=== PATIENT | male | born 1960 | race Caucasian/White ===

== ENCOUNTER 2023-08-21 10:01 | Observation (INO) ==
[2023-08-21 11:15] LABS: BILIRUBIN,URINE NEGATIVE (NEGATIVE); BLOOD/HEMOGLOBIN,URINE 2+ (NEGATIVE); GLUCOSE, URINE NEGATIVE (NEGATIVE); KETONES,URINE NEGATIVE (NEGATIVE); LEUKOCYTE ESTERASE ,URINE NEGATIVE (NEGATIVE); NITRITES,URINE NEGATIVE (NEGATIVE); PROTEIN,URINE 1+ (NEGATIVE); UROBILINOGEN,URINE NORMAL (NORMAL)
[2023-08-21 11:29] LABS: APPEARANCE,URINE CLEAR (CLEAR); COLOR,URINE YELLOW (YELLOW)
[2023-08-21 11:30] LABS: BACTERIA,URINE NEGATIVE /HPF (NEGATIVE); RBC,URINE 0-2 /HPF (0-3); SQUAMOUS EPITHELIAL CELL,UR RARE /HPF (NEGATIVE)
--- NOTE | 2023-08-21 12:12 | DR.EXTPAIN ---
HPI Time seen Time Seen by Provider: 08/21/23 12:10 PCP Primary Care Physician: Dr. Goldstein Complaint/Symptoms Chief Complaint:: Patient states he had a colonoscopy last week with Dr. Goldstein and has since had complications with urination and bowel movements. Also states he's having abdominal pain, pain in the back of his lungs, and coughing up white sputum. COVID-19 Coronavirus risk:travel/contact w/high risk person: No Has patient experienced Coronavirus symptoms: No Nurses notes reviewed Nurses Notes Review: Yes Source History Provided: Patient Mode of arrival Mode of Arrival: Ambulatory Timing Onset of Chief Complaint: 08/14/23 PMH PMH Past Medical History: Yes Past Medical History: Dyslipidemia and Hypertension Past Surgical History: No Family History History of Family Medical Conditions: No Social History Have you used tobacco products in the last 12 months: No Type of Tobacco Use: None Infectious screening Have you traveled outside the country in the last 6 months?: No Isolation: Standard PE Vital Signs Vitals: Vital Signs Temperature 97.2 F Pulse Rate 89 Respiratory Rate 18 Blood Pressure 144/82 O2 Sat by Pulse Oximetry 96 ROR Labs Reviewed 08/21/23 12:25 08/21/23 12:25 Laboratory: WBC 8.0 X10^3/uL (3.6-10.0) 08/21/23 12:25 RBC 5.11 X10^6/uL (4.7-6.0) 08/21/23 12:25 Hgb 15.4 g/dL (13.5-18.0) 08/21/23 12:25 Hct 44.4 % (42.0-54.0) 08/21/23 12:25 MCV 87.0 fL (80.0-100.0) 08/21/23 12:25 MCH 30.1 pg (27.0-34.0) 08/21/23 12:25 MCHC 34.6 g/dL (33.0-35.0) 08/21/23 12:25 RDW 13.9 % (11.6-16.5) 08/21/23 12:25 Plt Count 222 X10^3/uL (150.0-450.0) 08/21/23 12:25 MPV 7.4 fL (7.4-11.0) 08/21/23 12:25 Neut % (Auto) 71.2 % (42.0-75.0) 08/21/23 12: Lymph % (Auto) 16.2 % (21.0-51.0) L 08/21/23 12:25 [place] % (Auto) 9.6 % (0.0-13.0) 08/21/23 12:25 Eos % (Auto) 2.2 % (0.9-2.9) 08/21/23 12:25 Baso % (Auto) 0.8 % (0.2-1.0) 08/21/23 12:25 Neut # (Auto) 5.7 x10^3/uL (2.2-4.8) H 08/21/23 12:25 Lymph # (Auto) 1.3 X10^3/uL (1.3-2.9) 08/21/23 12:25 [place] # (Auto) 0.8 x10^3/uL (0.3-0.8) 08/21/23 12: Eos # (Auto) 0.2 x10^3/uL (0.0-0.2) 08/21/23 12:25 Baso # (Auto) 0.1 X10^3/uL (0.0-0.1) 08/21/23 12: Absolute Nucleated RBC 0.1 /100WBC 08/21/23 12:25 Sodium 132 mmol/L (136-145) L 08/21/23 12:25 Corrected Sodium 133 mmol/L (136-145) L 08/21/23 12:25 Potassium 4.1 mmol/L (3.5-5.1) 08/21/23 12:25 Chloride 95 mmol/L (98-107) L 08/21/23 12:25 Carbon Dioxide 32.8 mmol/L (21-32) H 08/21/23 12:25 BUN 9 mg/dL (7-18) 08/21/23 12:25 Creatinine 1.41 mg/dL (0.70-1.30) H 08/21/23 12:25 Est GFR (MDRD) Af Amer > 60 (>60) 08/21/23 12:25 Est GFR (MDRD) Non-Af 54 (>60) L 08/21/23 12:25 Glucose 122 mg/dL (65-99) H 08/21/23 12:25 Calcium 9.3 mg/dL (8.5-10.1) 08/21/23 12:25 Corrected Calcium TNP 08/21/23 12: Total Bilirubin 1.20 mg/dL (0.2-1.0) H 08/21/23 12:25 AST 26 Units/L (15-37) 08/21/23 12:25 ALT 50 Units/L (12-78) 08/21/23 12:25 Alkaline Phosphatase 57 Units/L (46-116) 08/21/23 12:25 Total Protein 7.7 g/dL (6.4-8.2) 08/21/23 12:25 Albumin 3.7 g/dL (3.4-5.0) 08/21/23 12: Globulin 4.0 g/dL (2.5-4.5) 08/21/23 12: Albumin/Globulin Ratio 0.9 Ratio (1.1-2.1) L 08/21/23 12:25 Amylase 44 Units/L (25-115) 08/21/23 12:25 Lipase 24 Units/L (16-77) 08/21/23 12:25 Specimen Type Clean catch urine 08/21/23 11:10 Urine Color Yellow (YELLOW) 08/21/23 11:10 Urine Appearance Clear (CLEAR) 08/21/23 11:10 Urine pH 5.0 (5.0 - 8.0) 08/21/23 11:10 Ur Specific [place] 1.020 (1.000-1.030) 08/21/23 11:10 Urine Protein 1+ (NEGATIVE) 08/21/23 11:10 Urine Glucose (UA) Negative (NEGATIVE) 08/21/23 11:10 Urine Ketones Negative (NEGATIVE) 08/21/23 11:10 Urine Blood 2+ (NEGATIVE) 08/21/23 11:10 Urine Nitrite Negative (NEGATIVE) 08/21/23 11:10 Urine Bilirubin Negative (NEGATIVE) 08/21/23 11:10 Urine Urobilinogen Normal (NORMAL) 08/21/23 11:10 Ur Leukocyte Esterase Negative (NEGATIVE) 08/21/23 11:10 Urine RBC 0-2 /HPF (0-3) 08/21/23 11:10 Urine WBC 0-2 /HPF (0-5) 08/21/23 11:10 Ur Squamous Epith Cells Rare /HPF (NEGATIVE) 08/21/23 11:10 Urine Bacteria Negative /HPF (NEGATIVE) 08/21/23 11:10 Ur Culture Indicated? No/not indicated 08/21/23 11:10 Opioid Opioid Risk Tool Total: 0 Total Score Risk Category: Low Risk Copyright: Tex WILLIS predicting aberrant behaviors Discharge Plan Discharge Plan Patient Disposition: HOME, SELF-CARE Condition: Stable Prescriptions: No Action ondansetron HCl 4 mg tablet 4 mg PO Q6H PRN (Reason: nausea and vomiting) Qty: 30 0RF lovastatin 40 mg tablet 40 mg PO QPM cetirizine 10 mg tablet 10 mg PO QDAY metformin 500 mg tablet 500 mg PO QDAY omeprazole 20 mg capsule,delayed release(DR/EC) 20 mg PO QDAY carvedilol 3.125 mg tablet 3.125 mg PO BID lisinopril-hydrochlorothiazide 20-12.5 mg tablet 1 tab PO QDAY aspirin 81 mg tablet,delayed release (DR/EC) 81 mg PO QDAY hydrocortisone acetate 30 mg suppository 30 mg RI TID Rectiv 0.4 % (w/w) ointment 1 inch RI BID Qty: 30 0RF Health Concerns: Post Hospitalization: new medications and changes needed to prevent readmission or further decline. Pt educated and given instructions on all concerns. Plan of Treatment: Continue with present treatment and follow up plan. Pt is to keep follow up appointment as instructed and take medications as ordered. Orders to Discharge Patient Discharge Orders: Transfer (Routine); Ordered 08/21/23 Ordered By: VALERIE PROCTOR Follow ups/Referrals Follow ups/Referrals: NFD,None [Primary Care Provider] - 3 days Instructions Stand Alone Forms: Post Hospital Follow Up Care
[2023-08-21 12:38] LABS: BASOPHILS # (AUTO) 0.1 X10^3/uL (0.0-0.1); BASOPHILS % (AUTO) 0.8 % (0.2-1.0); EOSINOPHILS # (AUTO) 0.2 x10^3/uL (0.0-0.2); EOSINOPHILS % (AUTO) 2.2 % (0.9-2.9); HEMATOCRIT 44.4 % (42.0-54.0); HEMOGLOBIN 15.4 g/dL (13.5-18.0); LYMPHOCYTES # (AUTO) 1.3 X10^3/uL (1.3-2.9); LYMPHOCYTES % (AUTO) 16.2 % (21.0-51.0); MEAN CORPUSCULAR HEMOGLOBIN 30.1 pg (27.0-34.0); MEAN CORPUSCULAR HGB CONC 34.6 g/dL (33.0-35.0); MEAN PLATELET VOLUME 7.4 fL (7.4-11.0); MONOCYTES # (AUTO) 0.8 x10^3/uL (0.3-0.8); MONOCYTES % (AUTO) 9.6 % (0.0-13.0); NEUTROPHILS # (AUTO) 5.7 x10^3/uL (2.2-4.8); NEUTROPHILS % (AUTO) 71.2 % (42.0-75.0); PLATELET COUNT 222 X10^3/uL (150.0-450.0); RED BLOOD COUNT 5.11 X10^6/uL (4.7-6.0); RED CELL DISTRIBUTION WIDTH 13.9 % (11.6-16.5)
[2023-08-21 12:47] LABS: ALANINE AMINOTRANSFERASE 50 Units/L (12-78); ALBUMIN 3.7 g/dL (3.4-5.0); ALKALINE PHOSPHATASE 57 Units/L (46-116); AMYLASE 44 Units/L (25-115); ASPARTATE AMINO TRANSFERASE 26 Units/L (15-37); BLOOD UREA NITROGEN 9 mg/dL (7-18); CALCIUM 9.3 mg/dL (8.5-10.1); CARBON DIOXIDE 32.8 mmol/L (21-32); CHLORIDE 95 mmol/L (98-107); COR NA(FOR HYPERGLY) 133 mmol/L (136-145); CREATININE 1.41 mg/dL (0.70-1.30); GLUCOSE 122 mg/dL (65-99); LIPASE 24 Units/L (16-77); POTASSIUM 4.1 mmol/L (3.5-5.1); SODIUM 132 mmol/L (136-145); TOTAL PROTEIN 7.7 g/dL (6.4-8.2); eGFR NON BLACK RACES 54 (>60)
--- NOTE | 2023-08-21 13:08 | CT ---
EXAM:ABDOMEN/PELVIS W/O CONHISTORY:PAIN;COMPARISON:Yesterday .br.br.br obtained from the lung bases to the pubic symphysis without the administration of IV contrast. Dose reduction techniques including Automated Exposure Control (AEC) and adjustment of mA and kV were utilized.FINDINGS:The visualized portions of the lung bases are unremarkable . The liver, spleen, pancreas, kidneys, and adrenal glands are unremarkable in their noncontrast CT appearance. The gallbladder is unremarkable in its CT appearance . No significant mesenteric lymphadenopathy or stranding can be observed. No free fluid or free air is seen within the abdomen. No bowel wall thickening or bowel dilatation is present. The colon is unremarkable. Specifically, there is no diverticulosis noted within the sigmoid colon. The appendix is normal. The urinary bladder is grossly unremarkable. The bony structures are grossly intact.IMPRESSION:Unremarkable CT of the abdomen and pelvis.THIS IS AN ELECTRONICALLY VERIFIED FINAL REPORT08/21/2023 1:05 PM - Electronically signed by Richard Morley MD
[2023-08-21] MEDS ORDERED: ZOFRAN INJ 4 MG VIAL IVP PRN (15:14)
[2023-08-21] MEDS ORDERED: MORPHINE SULFATE INJ 2 MG INJ IVP PRN (15:14)
[2023-08-21] MEDS: NS 1,000 ML IV 1,000 ML IV SCH (15:52)
[2023-08-21 15:58] VITALS: BMI 30.2
--- NOTE | 2023-08-21 18:49 | EKG ---
Test Reason : increased heart rate, dizzyness Blood Pressure : */* mmHG Vent. Rate : 99 BPM Atrial Rate : 99 BPM P-R Int : 144 ms QRS Dur : 94 ms QT Int : 350 ms P-R-T Axes : 22 29 30 degrees QTc Int : 449 ms Normal sinus rhythm Nonspecific ST abnormality Abnormal ECG No previous ECGs available Confirmed by Hernan Cervantes ([id number]) on 08/22/2023 3:34:21 PM Referred By: Confirmed By: Hernan Cervantes
[2023-08-21] MEDS ORDERED: PATIENT'S HOME MEDICATION (Lovastatin 40 mg tablet) PO SCH (21:00)
[2023-08-21] MEDS: COREG TAB 3.125 MG PO SCH (21:34)
[2023-08-21] MEDS: ZOCOR TAB 20 MG PO SCH (21:34)
[2023-08-21] MEDS: NITROGLYCERIN 0.4% PR SCH (21:49)
[2023-08-21] MEDS: [UNRECOGNIZED DRUG - OTHER] PR SCH (21:49)
[2023-08-21] MEDS: ANUCORT-HC SUPP PR SCH (21:50)
[2023-08-22] MEDS: NS 1,000 ML IV 1,000 ML IV SCH ×3 (03:00→22:23)
[2023-08-22] MEDS: ANUCORT-HC SUPP PR SCH ×3 (05:49→22:23)
[2023-08-22 06:32] LABS: BASOPHILS % (AUTO) 0.6 % (0.2-1.0); EOSINOPHILS # (AUTO) 0.2 x10^3/uL (0.0-0.2); EOSINOPHILS % (AUTO) 2.9 % (0.9-2.9); HEMATOCRIT 43.7 % (42.0-54.0); HEMOGLOBIN 15.2 g/dL (13.5-18.0); LYMPHOCYTES # (AUTO) 1.9 X10^3/uL (1.3-2.9); LYMPHOCYTES % (AUTO) 22.8 % (21.0-51.0); MEAN CORPUSCULAR HEMOGLOBIN 30.2 pg (27.0-34.0); MEAN CORPUSCULAR HGB CONC 34.7 g/dL (33.0-35.0); MEAN CORPUSCULAR VOLUME 87.1 fL (80.0-100.0); MEAN PLATELET VOLUME 8.1 fL (7.4-11.0); MONOCYTES # (AUTO) 0.9 x10^3/uL (0.3-0.8); MONOCYTES % (AUTO) 10.4 % (0.0-13.0); NEUTROPHILS # (AUTO) 5.1 x10^3/uL (2.2-4.8); NEUTROPHILS % (AUTO) 63.3 % (42.0-75.0); PLATELET COUNT 238 X10^3/uL (150.0-450.0); RED BLOOD COUNT 5.01 X10^6/uL (4.7-6.0); WHITE BLOOD COUNT 8.1 X10^3/uL (3.6-10.0)
[2023-08-22 06:37] LABS: ALANINE AMINOTRANSFERASE 47 Units/L (12-78); ALBUMIN 3.5 g/dL (3.4-5.0); ALKALINE PHOSPHATASE 54 Units/L (46-116); ASPARTATE AMINO TRANSFERASE 23 Units/L (15-37); BLOOD UREA NITROGEN 9 mg/dL (7-18); CARBON DIOXIDE 30.7 mmol/L (21-32); CHLORIDE 98 mmol/L (98-107); CREATININE 1.23 mg/dL (0.70-1.30); GLUCOSE 96 mg/dL (65-99); POTASSIUM 3.7 mmol/L (3.5-5.1); SODIUM 134 mmol/L (136-145); TOTAL PROTEIN 7.4 g/dL (6.4-8.2); eGFR NON BLACK RACES > 60 (>60)
[2023-08-22] MEDS ORDERED: GLUCOPHAGE ONE (08:06)
[2023-08-22] MEDS ORDERED: ZESTRIL TAB 20 MG ONE (08:06)
[2023-08-22] MEDS: ZyrTEC TAB 10 MG PO SCH (08:55)
[2023-08-22] MEDS: GLUCOPHAGE PO SCH (08:55)
[2023-08-22] MEDS: HYDROCHLOROTHIAZIDE 12.5 MG CAP PO SCH (08:55)
[2023-08-22] MEDS: PriLOSEC PO SCH (08:56)
[2023-08-22] MEDS: ASPIRIN EC 81 MG PO SCH (08:56)
[2023-08-22] MEDS: COREG TAB 3.125 MG PO SCH ×2 (08:56→20:20)
[2023-08-22] MEDS: ZESTRIL TAB 20 MG PO SCH (08:57)
[2023-08-22] MEDS: [UNRECOGNIZED DRUG - OTHER] PR SCH ×3 (08:57→22:23)
[2023-08-22] MEDS: NITROGLYCERIN 0.4% PR SCH ×3 (08:57→22:23)
[2023-08-22] MEDS ORDERED: K-DUR TAB 20 MEQ PO SCH (09:00)
[2023-08-22] MEDS ORDERED: CONSULT PHARMACY - POTASSIUM & MAGNESIUM XX SCH (09:00)
[2023-08-22] MEDS ORDERED: ZyrTEC TAB 10 MG PO SCH (09:00)
--- NOTE | 2023-08-22 10:32 | DR.PROGNOT ---
HOSPITAL PROGRESS NOTE Progress Note for Day of: Progress Note Date: 08/22/23 Chief Complaint Chief Complaint: Still having mid abdominal pain with irregular bowel habits. No nausea or vomiting, no fever. Having rectal pain with each bowel movement with minimal bleeding. Complaining of swelling around his eyes with nasal congestion. Patient had recent upper respiratory tract infection. CBC and CHEM profile were normal. Afebrile. Past Medical Family Social History Allergies: Allergies iodine Allergy (Verified 08/14/23 08:02) Penicillins Allergy (Verified 08/03/23 09:37) shellfish derived Allergy (Verified 08/14/23 08:02) shrimp Allergy (Verified 08/14/23 09:27) Review Of Systems Changes in ROS: No changes Vital Signs Vital Signs: Vital Signs Temperature 98.6 F Pulse Rate [Left Radial] 89 Respiratory Rate 20 Blood Pressure [Left Arm] 121/73 O2 Sat by Pulse Oximetry 94 Physical Exam Oriented: Normal Eyes: Other (Moderate periorbital swelling) Throat: Normal Cardiovascular: Normal GI:Auscultation: Normal GI: Tenderness: Other (Diffuse abdominal tenderness, no rebound, bowel sounds present.) Speech Pattern: Clear and Appropriate Laboratory and Diagnostics 08/22/23 05:21 08/22/23 05:21 Labs: Laboratory WBC 8.1 X10^3/uL (3.6-10.0) 08/22/23 05:21 RBC 5.01 X10^6/uL (4.7-6.0) 08/22/23 05:21 Hgb 15.2 g/dL (13.5-18.0) 08/22/23 05:21 Hct 43.7 % (42.0-54.0) 08/22/23 05:21 MCV 87.1 fL (80.0-100.0) 08/22/23 05:21 MCH 30.2 pg (27.0-34.0) 08/22/23 05:21 MCHC 34.7 g/dL (33.0-35.0) 08/22/23 05:21 RDW 14.0 % (11.6-16.5) 08/22/23 05:21 Plt Count 238 X10^3/uL (150.0-450.0) 08/22/23 05:21 MPV 8.1 fL (7.4-11.0) 08/22/23 05:21 Neut % (Auto) 63.3 % (42.0-75.0) 08/22/23 05:21 Lymph % (Auto) 22.8 % (21.0-51.0) 08/22/23 05:21 [place] % (Auto) 10.4 % (0.0-13.0) 08/22/23 05:21 Eos % (Auto) 2.9 % (0.9-2.9) 08/22/23 05:21 Baso % (Auto) 0.6 % (0.2-1.0) 08/22/23 05:21 Neut # (Auto) 5.1 x10^3/uL (2.2-4.8) H 08/22/23 05:21 Lymph # (Auto) 1.9 X10^3/uL (1.3-2.9) 08/22/23 05:21 [place] # (Auto) 0.9 x10^3/uL (0.3-0.8) H 08/22/23 05:21 Eos # (Auto) 0.2 x10^3/uL (0.0-0.2) 08/22/23 05:21 Baso # (Auto) 0.0 X10^3/uL (0.0-0.1) 08/22/23 05:21 Absolute Nucleated RBC 0.1 /100WBC 08/22/23 05:21 Sodium 134 mmol/L (136-145) L 08/22/23 05:21 Corrected Sodium TNP 08/22/23 05:21 Potassium 3.7 mmol/L (3.5-5.1) 08/22/23 05:21 Chloride 98 mmol/L (98-107) 08/22/23 05:21 Carbon Dioxide 30.7 mmol/L (21-32) 08/22/23 05:21 BUN 9 mg/dL (7-18) 08/22/23 05:21 Creatinine 1.23 mg/dL (0.70-1.30) 08/22/23 05:21 Est GFR (MDRD) Af Amer > 60 (>60) 08/22/23 05:21 Est GFR (MDRD) Non-Af > 60 (>60) 08/22/23 05:21 Glucose 96 mg/dL (65-99) 08/22/23 05:21 Calcium 9.0 mg/dL (8.5-10.1) 08/22/23 05:21 Corrected Calcium TNP 08/22/23 05:21 Magnesium 2.0 mg/dL (2.0-2.9) 08/22/23 05:21 Total Bilirubin 1.10 mg/dL (0.2-1.0) H 08/22/23 05:21 AST 23 Units/L (15-37) 08/22/23 05:21 ALT 47 Units/L (12-78) 08/22/23 05:21 Alkaline Phosphatase 54 Units/L (46-116) 08/22/23 05:21 Troponin I High Sens 4.0 ng/L (4.0-60.0) 08/21/23 18:25 Total Protein 7.4 g/dL (6.4-8.2) 08/22/23 05:21 Albumin 3.5 g/dL (3.4-5.0) 08/22/23 05:21 Globulin 3.9 g/dL (2.5-4.5) 08/22/23 05:21 Albumin/Globulin Ratio 0.9 Ratio (1.1-2.1) L 08/22/23 05:21 Amylase 44 Units/L (25-115) 08/21/23 12:25 Lipase 24 Units/L (16-77) 08/21/23 12:25 Specimen Type Clean catch urine 08/21/23 11:10 Urine Color Yellow (YELLOW) 08/21/23 11:10 Urine Appearance Clear (CLEAR) 08/21/23 11:10 Urine pH 5.0 (5.0 - 8.0) 08/21/23 11:10 Ur Specific [place] 1.020 (1.000-1.030) 08/21/23 11:10 Urine Protein 1+ (NEGATIVE) 08/21/23 11:10 Urine Glucose (UA) Negative (NEGATIVE) 08/21/23 11:10 Urine Ketones Negative (NEGATIVE) 08/21/23 11:10 Urine Blood 2+ (NEGATIVE) 08/21/23 11:10 Urine Nitrite Negative (NEGATIVE) 08/21/23 11:10 Urine Bilirubin Negative (NEGATIVE) 08/21/23 11:10 Urine Urobilinogen Normal (NORMAL) 08/21/23 11:10 Ur Leukocyte Esterase Negative (NEGATIVE) 08/21/23 11:10 Urine RBC 0-2 /HPF (0-3) 08/21/23 11:10 Urine WBC 0-2 /HPF (0-5) 08/21/23 11:10 Ur Squamous Epith Cells Rare /HPF (NEGATIVE) 08/21/23 11:10 Urine Bacteria Negative /HPF (NEGATIVE) 08/21/23 11:10 Ur Culture Indicated? No/not indicated 08/21/23 11:10 Assessment and Plan 1: Abdominal pain with irregular bowel habits. 2: Recent anal fissure treated with Botox injection. Same Rectiv ointment to apply twice a day. High-fiber diet. Sitz bath 3: Will discharge in the morning Problem Patient Problems: Patient Problems Abdominal pain (Acute) R10.9
[2023-08-22] MEDS: ZOCOR TAB 20 MG PO SCH (20:20)
[2023-08-22 22:02] VITALS: RESP 20
[2023-08-23] MEDS: ANUCORT-HC SUPP PR SCH (06:13)
[2023-08-23] MEDS: [UNRECOGNIZED DRUG - OTHER] PR SCH (06:14)
[2023-08-23] MEDS: NITROGLYCERIN 0.4% PR SCH (06:14)
[2023-08-23 06:42] LABS: BASOPHILS # (AUTO) 0.1 X10^3/uL (0.0-0.1); BASOPHILS % (AUTO) 0.9 % (0.2-1.0); EOSINOPHILS # (AUTO) 0.4 x10^3/uL (0.0-0.2); EOSINOPHILS % (AUTO) 5.1 % (0.9-2.9); HEMATOCRIT 40.6 % (42.0-54.0); LYMPHOCYTES # (AUTO) 2.2 X10^3/uL (1.3-2.9); LYMPHOCYTES % (AUTO) 28.8 % (21.0-51.0); MEAN CORPUSCULAR HEMOGLOBIN 30.2 pg (27.0-34.0); MEAN CORPUSCULAR HGB CONC 34.5 g/dL (33.0-35.0); MEAN CORPUSCULAR VOLUME 87.6 fL (80.0-100.0); MEAN PLATELET VOLUME 7.3 fL (7.4-11.0); MONOCYTES # (AUTO) 0.7 x10^3/uL (0.3-0.8); MONOCYTES % (AUTO) 9.6 % (0.0-13.0); NEUTROPHILS # (AUTO) 4.2 x10^3/uL (2.2-4.8); NEUTROPHILS % (AUTO) 55.6 % (42.0-75.0); PLATELET COUNT 214 X10^3/uL (150.0-450.0); RED BLOOD COUNT 4.63 X10^6/uL (4.7-6.0); RED CELL DISTRIBUTION WIDTH 14.2 % (11.6-16.5); WHITE BLOOD COUNT 7.6 X10^3/uL (3.6-10.0)
[2023-08-23 07:16] LABS: ALANINE AMINOTRANSFERASE 37 Units/L (12-78); ALBUMIN 3.1 g/dL (3.4-5.0); ALKALINE PHOSPHATASE 55 Units/L (46-116); ASPARTATE AMINO TRANSFERASE 14 Units/L (15-37); BLOOD UREA NITROGEN 13 mg/dL (7-18); CALCIUM 8.7 mg/dL (8.5-10.1); CARBON DIOXIDE 28.9 mmol/L (21-32); CHLORIDE 102 mmol/L (98-107); COR CA(FOR HYPOALB) 9.4 mg/dL (8.5-10.1); CREATININE 1.34 mg/dL (0.70-1.30); GLUCOSE 95 mg/dL (65-99); POTASSIUM 3.9 mmol/L (3.5-5.1); SODIUM 136 mmol/L (136-145); TOTAL PROTEIN 6.8 g/dL (6.4-8.2); eGFR NON BLACK RACES 57 (>60)
[2023-08-23 08:14] VITALS: BP 110/69; PULSE 98; TEMP 98; O2SAT 94
[2023-08-23] MEDS ORDERED: NORCO 5/325 MG TAB PO PRN (08:15)
[2023-08-23] MEDS ORDERED: GLUCOPHAGE ONE (08:41)
[2023-08-23] MEDS ORDERED: ZESTRIL TAB 20 MG ONE (08:41)
[2023-08-23] MEDS: NS 1,000 ML IV 1,000 ML IV SCH (08:58)
[2023-08-23] MEDS: GLUCOPHAGE PO SCH (08:58)
[2023-08-23] MEDS: PriLOSEC PO SCH (08:59)
[2023-08-23] MEDS: ASPIRIN EC 81 MG PO SCH (08:59)
[2023-08-23] MEDS: HYDROCHLOROTHIAZIDE 12.5 MG CAP PO SCH (08:59)
[2023-08-23] MEDS: ZyrTEC TAB 10 MG PO SCH (08:59)
[2023-08-23] MEDS: ZESTRIL TAB 20 MG PO SCH (08:59)
[2023-08-23] MEDS: COREG TAB 3.125 MG PO SCH (08:59)
== END 2023-08-23 11:40 | disposition home or self-care (01) ==
LOC: MED/SURG 10:01 → ER 10:01 → MED/SURG 15:34
PROVIDERS: ADMIT Surgery; ATTEND Surgery
DX: E11.65 Type 2 diabetes mellitus with hyperglycemia; R19.4 Change in bowel habit; Z98.890 Other specified postprocedural states; K21.9 Gastro-esophageal reflux disease without esophagitis; K56.690 Other partial intestinal obstruction; R10.84 Generalized abdominal pain; I10 Essential (primary) hypertension; E87.1 Hypo-osmolality and hyponatremia; E78.5 Hyperlipidemia, unspecified

== ENCOUNTER 2023-09-07 13:39 | Observation (INO) ==
--- NOTE | 2023-09-07 14:09 | DR.SOBA ---
HPI Time Seen Time Seen by Provider: 09/07/23 14:07 Primary Care Physician Primary Care Physician: PAREDES Complaints Chief Complaint Doctors Comments: 62-year-old male presents for evaluation. Has been ill frequently over the past 2 months. Had influenza in July. Had a complication after colonoscopy, had an anal fissure, was injected with Botox. Developed COVID 2 weeks ago, seen by me then. Was improving. Feeling poorly over the past 2 days. Having episodes where he feels heart skipping. Having lightheadedness dizziness, especially with walking. Feeling short of breath with exertion, walking. Has been coughing, not very productive. Episodes of nausea when he feels worse, some dry heaving. Has been relatively constipated, has been taking a laxative. Some discomfort with urination. Chief Complaint:: PT STATES HE HAS BEEN HAVING SOME WEAKNESS AND SOB SINCE Aug. HE WAS DX'D WITH COVID 2 WEEKS AGO HERE AND HAD THE FLU IN JULY AROUND [place]. HE HAS NO ENERGY. COVID-19 Coronavirus risk:travel/contact w/high risk person: No Has patient experienced Coronavirus symptoms: No Reviewed Nurses Notes Reviewed: Yes Source History Provided: Patient and Significant Other Mode of Arrival Mode of Arrival: Wheelchair Timing Onset of Chief Complaint: 09/07/23 PMH PMH Past Medical History: Yes Past Medical History: Dyslipidemia and Hypertension Past Surgical History: No Surgical History: No History Family History History of Family Medical Conditions: Yes Family Medical History: Diabetes Mellitus and Hypertension Social History Does any household member use tobacco: No Do you use any recreational Drugs:: No Travel Risk Coronavirus risk:travel/contact w/high risk person: No Has patient experienced Coronavirus symptoms: No Infectious screening In the last 2 months have you had wt loss of >10#?: NO Have you had fever, night sweats or hemotysis?: No Have you traveled outside the country in the last 6 months?: No Isolation: Standard ROS Review of Systems Constitutional: Malaise and Weakness Eyes: No Symptoms Reported ENTM: Throat Pain Respiratoy: Moist Cough and Short of Breath Cardiovascular: Palpitations Gastrointestinal/Abdominal: Constipation and Nausea Genitourinary: Dysuria Neurological: Weakness and Dizziness Musculoskeletal: No Symptoms Reported Integumentary: No Symptoms Reported Hematologic/Lymphatic: No Symptoms Reported All Other Systems: Reviewed and Negative PE Vital Signs Vitals: Vital Signs Temperature 97.8 F Pulse Rate 75 Pulse Rate 76 Pulse Rate 81 Pulse Rate 79 Pulse Rate 74 Pulse Rate 79 Pulse Rate 89 Pulse Rate 81 Pulse Rate 68 Pulse Rate 66 Pulse Rate 79 Pulse Rate 71 Pulse Rate 72 Pulse Rate 69 Pulse Rate 70 Pulse Rate 70 Pulse Rate 73 Pulse Rate 80 Pulse Rate 85 Pulse Rate 83 Respiratory Rate 15 Respiratory Rate 20 Respiratory Rate 23 Respiratory Rate 15 Respiratory Rate 24 Respiratory Rate 12 Respiratory Rate 20 Respiratory Rate 22 Respiratory Rate 23 Respiratory Rate 22 Respiratory Rate 25 Respiratory Rate 22 Respiratory Rate 17 Respiratory Rate 22 Respiratory Rate 19 Respiratory Rate 18 Respiratory Rate 16 Respiratory Rate 14 Respiratory Rate 21 Respiratory Rate 20 Blood Pressure 108/60 Blood Pressure 117/77 Blood Pressure 136/102 Blood Pressure 107/58 Blood Pressure 132/73 Blood Pressure 134/68 Blood Pressure 129/74 Blood Pressure 120/80 Blood Pressure 139/83 O2 Sat by Pulse Oximetry 95 O2 Sat by Pulse Oximetry 95 O2 Sat by Pulse Oximetry 95 O2 Sat by Pulse Oximetry 98 O2 Sat by Pulse Oximetry 96 O2 Sat by Pulse Oximetry 97 O2 Sat by Pulse Oximetry 97 O2 Sat by Pulse Oximetry 95 O2 Sat by Pulse Oximetry 96 O2 Sat by Pulse Oximetry 98 O2 Sat by Pulse Oximetry 98 O2 Sat by Pulse Oximetry 98 O2 Sat by Pulse Oximetry 98 O2 Sat by Pulse Oximetry 100 O2 Sat by Pulse Oximetry 98 O2 Sat by Pulse Oximetry 96 O2 Sat by Pulse Oximetry 98 O2 Sat by Pulse Oximetry 99 O2 Sat by Pulse Oximetry 98 General General Appearance: Alert and In No Apparent Distress Head Head Exam: Normal Inspection, Atraumatic and Normocephalic Eyes Eye exam: PERRL and EOMI ENT ENT Exam: Mucous Membranes Moist, TM's Normal Bilaterally and Other (Mild erythema of the oropharynx) Respiratory Respiratory Exam: Normal Lung Sounds Bilat; negative Accessory Muscle Use or Respiratory Distress Cardiovascular Cardiovascular Exam: Regular Rate, Normal Rhythm and Normal Heart Sounds Abdominal Exam Abdominal Exam: Normal Bowel Sounds and Soft; negative Tenderness, Guarding or Rebound Extremities Extremities Exam: Normal Inspection; negative Edema Neurologic Neurological Exam: Alert, Oriented X3 and CN II-XII Intact; negative Motor Sensory Deficit Skin Skin Exam: Warm and Dry COURSE Treatment Treatment: 62-year-old male, recurrent illnesses over the past 2 months, now feeling poorly over the past 2 days. Feeling worse with exertion, walking. Work-up initiated. Patient given IV fluids. 1823 -white count up a bit to 13.2. Sodium low at 131. Rest of his labs are acceptable. Has negative troponin, negative BNP. Chest x-ray without acute abnormalities. Patient having episodes of dry retching here. Patient ambulated, pulse ox checked. He did not drop his pulse ox with ambulation. Will recommend admission for further IV hydration, treatment of his low sodium. Recommend echocardiogram tomorrow for further evaluation of his exertional dyspnea. Discussed with Dr. Real, on-call, accepts admission for Dr. Paredes (patient recently started seeing him). ROR Labs Reviewed Laboratory Results Reviewed?: Yes 09/07/23 14:25 09/07/23 14:25 Laboratory: WBC 13.2 X10^3/uL (3.6-10.0) H 09/07/23 14:25 RBC 5.40 X10^6/uL (4.7-6.0) 09/07/23 14:25 Hgb 16.6 g/dL (13.5-18.0) 09/07/23 14:25 Hct 47.5 % (42.0-54.0) 09/07/23 14:25 MCV 87.9 fL (80.0-100.0) 09/07/23 14:25 MCH 30.8 pg (27.0-34.0) 09/07/23 14:25 MCHC 35.0 g/dL (33.0-35.0) 09/07/23 14:25 RDW 14.2 % (11.6-16.5) 09/07/23 14:25 Plt Count 341 X10^3/uL (150.0-450.0) 09/07/23 14:25 MPV 6.8 fL (7.4-11.0) L 09/07/23 14:25 Neut % (Auto) 59.8 % (42.0-75.0) 09/07/23 14:25 Lymph % (Auto) 29.3 % (21.0-51.0) 09/07/23 14:25 [place] % (Auto) 9.6 % (0.0-13.0) 09/07/23 14:25 Eos % (Auto) 0.8 % (0.9-2.9) L 09/07/23 14:25 Baso % (Auto) 0.5 % (0.2-1.0) 09/07/23 14:25 Neut # (Auto) 7.9 x10^3/uL (2.2-4.8) H 09/07/23 14:25 Lymph # (Auto) 3.9 X10^3/uL (1.3-2.9) H 09/07/23 14:25 [place] # (Auto) 1.3 x10^3/uL (0.3-0.8) H 09/07/23 14:25 Eos # (Auto) 0.1 x10^3/uL (0.0-0.2) 09/07/23 14:25 Baso # (Auto) 0.1 X10^3/uL (0.0-0.1) 09/07/23 14:25 Absolute Nucleated RBC 0.1 /100WBC 09/07/23 14:25 Sodium 131 mmol/L (136-145) L 09/07/23 14:25 Corrected Sodium TNP 09/07/23 14:25 Potassium 3.8 mmol/L (3.5-5.1) 09/07/23 14:25 Chloride 97 mmol/L (98-107) L 09/07/23 14:25 Carbon Dioxide 27.5 mmol/L (21-32) 09/07/23 14:25 BUN 25 mg/dL (7-18) H 09/07/23 14:25 Creatinine 1.55 mg/dL (0.70-1.30) H 09/07/23 14:25 Est GFR (MDRD) Af Amer 59 (>60) 09/07/23 14:25 Est GFR (MDRD) Non-Af 49 (>60) L 09/07/23 14:25 Glucose 100 mg/dL (65-99) H 09/07/23 14:25 Lactic Acid 1.0 mmol/L (0.4-2.0) 09/07/23 14:27 Calcium 8.6 mg/dL (8.5-10.1) 09/07/23 14:25 Corrected Calcium TNP 09/07/23 14:25 Magnesium 2.0 mg/dL (2.0-2.9) 09/07/23 14:25 Total Bilirubin 0.60 mg/dL (0.2-1.0) 09/07/23 14:25 AST 17 Units/L (15-37) 09/07/23 14:25 ALT 62 Units/L (12-78) 09/07/23 14:25 Alkaline Phosphatase 61 Units/L (46-116) 09/07/23 14:25 Creatine Kinase 23 Units/L (39-308) L 09/07/23 14:25 Troponin I High Sens 5.1 ng/L (4.0-60.0) 09/07/23 14:25 B-Natriuretic Peptide < 5.0 pg/mL (0-79) 09/07/23 14:25 Total Protein 7.1 g/dL (6.4-8.2) 09/07/23 14:25 Albumin 3.4 g/dL (3.4-5.0) 09/07/23 14:25 Globulin 3.7 g/dL (2.5-4.5) 09/07/23 14:25 Albumin/Globulin Ratio 0.9 Ratio (1.1-2.1) L 09/07/23 14:25 S. pyogenes (TEM-PCR) Not detected (NOT DETECT) 09/07/23 14:25 Na low at 131 XRAY XRAY Interpreted by: Both X-ray Results: EXAM: CHEST, 1 VIEW HISTORY: Shortness of Breath; COMPARISON: 08/28/2023 FINDINGS: The lungs are clear. No pneumothorax or effusion. Heart size is normal. The bones are unremarkable. EKG leads are noted. IMPRESSION: 1. No significant abnormality THIS IS AN ELECTRONICALLY VERIFIED FINAL REPORT 09/07/2023 5:41 PM - Electronically signed by Cliff Daugherty MD EKG Rate: 72 [place]: Normal Rhythm: NSR Block: None ST: Normal Opioid Opioid Risk Tool Age (Lucio box if 16-45): No History of Preadolescent Sexual Abuse: No Total: 0 Total Score Risk Category: Low Risk Copyright: [place] WILLIS predicting aberrant behaviors Discharge Plan Diagnosis Discharge Problem: Acute hyponatremia, Exertional dyspnea Discharge Plan Patient Disposition: 09 ADMITTED INPATIENT Condition: Stable Orders to Discharge Patient Discharge Orders: Transfer (Routine); Ordered 09/07/23 Ordered By: Houston Romero
[2023-09-07] MEDS ORDERED: NS 1,000 ML IV 1,000 ML IV ONE (14:16)
[2023-09-07] MEDS ORDERED: NS 1,000 ML IV 1,000 ML ONE (14:21)
[2023-09-07 14:41] LABS: BASOPHILS # (AUTO) 0.1 X10^3/uL (0.0-0.1); BASOPHILS % (AUTO) 0.5 % (0.2-1.0); EOSINOPHILS # (AUTO) 0.1 x10^3/uL (0.0-0.2); EOSINOPHILS % (AUTO) 0.8 % (0.9-2.9); HEMATOCRIT 47.5 % (42.0-54.0); HEMOGLOBIN 16.6 g/dL (13.5-18.0); LYMPHOCYTES # (AUTO) 3.9 X10^3/uL (1.3-2.9); LYMPHOCYTES % (AUTO) 29.3 % (21.0-51.0); MEAN CORPUSCULAR HEMOGLOBIN 30.8 pg (27.0-34.0); MEAN CORPUSCULAR VOLUME 87.9 fL (80.0-100.0); MEAN PLATELET VOLUME 6.8 fL (7.4-11.0); MONOCYTES # (AUTO) 1.3 x10^3/uL (0.3-0.8); MONOCYTES % (AUTO) 9.6 % (0.0-13.0); NEUTROPHILS # (AUTO) 7.9 x10^3/uL (2.2-4.8); NEUTROPHILS % (AUTO) 59.8 % (42.0-75.0); PLATELET COUNT 341 X10^3/uL (150.0-450.0); RED CELL DISTRIBUTION WIDTH 14.2 % (11.6-16.5); WHITE BLOOD COUNT 13.2 X10^3/uL (3.6-10.0)
--- NOTE | 2023-09-07 14:43 | EKG ---
Test Reason : weakness Blood Pressure : */* mmHG Vent. Rate : 72 BPM Atrial Rate : 72 BPM P-R Int : 148 ms QRS Dur : 88 ms QT Int : 374 ms P-R-T Axes : 12 33 47 degrees QTc Int : 409 ms Normal sinus rhythm Normal ECG When compared with ECG of 28-AUG-2023 05:21, No significant change was found Confirmed by Oscar Foster MD ([id number]) on 09/08/2023 7:57:05 AM Referred By: Confirmed By: Oscar Foster MD
[2023-09-07 14:57] LABS: ALANINE AMINOTRANSFERASE 62 Units/L (12-78); ALBUMIN 3.4 g/dL (3.4-5.0); ALKALINE PHOSPHATASE 61 Units/L (46-116); ASPARTATE AMINO TRANSFERASE 17 Units/L (15-37); BLOOD UREA NITROGEN 25 mg/dL (7-18); CALCIUM 8.6 mg/dL (8.5-10.1); CARBON DIOXIDE 27.5 mmol/L (21-32); CHLORIDE 97 mmol/L (98-107); CREATINE KINASE 23 Units/L (39-308); CREATININE 1.55 mg/dL (0.70-1.30); GLUCOSE 100 mg/dL (65-99); POTASSIUM 3.8 mmol/L (3.5-5.1); SODIUM 131 mmol/L (136-145); TOTAL PROTEIN 7.1 g/dL (6.4-8.2); eGFR NON BLACK RACES 49 (>60)
--- NOTE | 2023-09-07 17:44 | RAD ---
EXAM:CHEST, 1 VIEWHISTORY:Shortness of Breath;COMPARISON:08/28/2023FINDINGS:The lungs are clear. No pneumothorax or effusion.Heart size is normal.The bones are unremarkable.EKG leads are noted.IMPRESSION:1. No significant abnormalityTHIS IS AN ELECTRONICALLY VERIFIED FINAL REPORT09/07/2023 5:41 PM - Electronically signed by Cliff Daugherty MD
[2023-09-07] MEDS ORDERED: ZOFRAN INJ 4 MG VIAL IVP ONE ×2 (17:47→20:11)
[2023-09-07] MEDS ORDERED: ZOFRAN INJ 4 MG VIAL ONE ×2 (17:48→20:06)
[2023-09-07] MEDS ORDERED: CONSULT PHARMACY - POTASSIUM & MAGNESIUM XX SCH (20:44)
[2023-09-07] MEDS ORDERED: ZOFRAN INJ 4 MG VIAL IVP PRN (20:44)
[2023-09-07] MEDS ORDERED: PROVENTIL NEB TX 0.083% 2.5MG/ 3ML NEB PRN (20:45)
[2023-09-07] MEDS ORDERED: PATIENT'S HOME MEDICATION (Lovastatin 40 mg tablet) PO SCH (21:00)
[2023-09-07] MEDS: COREG TAB 3.125 MG PO SCH (21:50)
[2023-09-07] MEDS: COLACE CAP 100 MG PO SCH (21:51)
[2023-09-07] MEDS: ELIQUIS PO SCH (21:51)
[2023-09-07] MEDS: D5 NS 1,000 ML IV 1,000 ML IV SCH (21:53)
[2023-09-07] MEDS: LIPITOR TAB 10 MG PO SCH (22:29)
[2023-09-07 22:55] VITALS: BMI 29.5
[2023-09-07] MEDS ORDERED: K-DUR TAB 20 MEQ PO ONE (23:00)
[2023-09-08] LABS: BILIRUBIN,URINE NEGATIVE (NEGATIVE); BLOOD/HEMOGLOBIN,URINE 1+ (NEGATIVE); GLUCOSE, URINE NEGATIVE (NEGATIVE); KETONES,URINE NEGATIVE (NEGATIVE); LEUKOCYTE ESTERASE ,URINE NEGATIVE (NEGATIVE); NITRITES,URINE NEGATIVE (NEGATIVE); PROTEIN,URINE NEGATIVE (NEGATIVE); UROBILINOGEN,URINE NORMAL (NORMAL)
[2023-09-08 00:07] LABS: APPEARANCE,URINE CLEAR (CLEAR); COLOR,URINE YELLOW (YELLOW)
[2023-09-08 00:08] LABS: BACTERIA,URINE TRACE /HPF (NEGATIVE); HYALINE CASTS, URINE RARE /LPF (NEGATIVE); RBC,URINE 0-2 /HPF (0-3); SQUAMOUS EPITHELIAL CELL,UR RARE /HPF (NEGATIVE)
[2023-09-08] MEDS: VISTARIL PO PRN ×2 (02:24→18:49)
[2023-09-08] MEDS: D5 NS 1,000 ML IV 1,000 ML IV SCH (04:09)
[2023-09-08 06:12] LABS: BASOPHILS % (AUTO) 0.3 % (0.2-1.0); EOSINOPHILS # (AUTO) 0.1 x10^3/uL (0.0-0.2); EOSINOPHILS % (AUTO) 0.7 % (0.9-2.9); HEMATOCRIT 40.6 % (42.0-54.0); HEMOGLOBIN 13.8 g/dL (13.5-18.0); LYMPHOCYTES # (AUTO) 1.9 X10^3/uL (1.3-2.9); LYMPHOCYTES % (AUTO) 18.9 % (21.0-51.0); MEAN CORPUSCULAR HEMOGLOBIN 30.1 pg (27.0-34.0); MEAN CORPUSCULAR HGB CONC 33.9 g/dL (33.0-35.0); MEAN CORPUSCULAR VOLUME 88.9 fL (80.0-100.0); MEAN PLATELET VOLUME 6.9 fL (7.4-11.0); MONOCYTES # (AUTO) 0.9 x10^3/uL (0.3-0.8); MONOCYTES % (AUTO) 8.6 % (0.0-13.0); NEUTROPHILS # (AUTO) 7.3 x10^3/uL (2.2-4.8); NEUTROPHILS % (AUTO) 71.5 % (42.0-75.0); PLATELET COUNT 269 X10^3/uL (150.0-450.0); RED BLOOD COUNT 4.57 X10^6/uL (4.7-6.0); RED CELL DISTRIBUTION WIDTH 14.3 % (11.6-16.5); WHITE BLOOD COUNT 10.2 X10^3/uL (3.6-10.0)
[2023-09-08 06:18] LABS: ALANINE AMINOTRANSFERASE 47 Units/L (12-78); ALBUMIN 2.6 g/dL (3.4-5.0); ALKALINE PHOSPHATASE 61 Units/L (46-116); ASPARTATE AMINO TRANSFERASE 14 Units/L (15-37); BLOOD UREA NITROGEN 22 mg/dL (7-18); CALCIUM 7.9 mg/dL (8.5-10.1); CARBON DIOXIDE 27.2 mmol/L (21-32); CHLORIDE 103 mmol/L (98-107); COR NA(FOR HYPERGLY) 134 mmol/L (136-145); CREATININE 1.23 mg/dL (0.70-1.30); GLUCOSE 115 mg/dL (65-99); POTASSIUM 4.5 mmol/L (3.5-5.1); SODIUM 134 mmol/L (136-145); TOTAL PROTEIN 5.5 g/dL (6.4-8.2); eGFR NON BLACK RACES > 60 (>60)
[2023-09-08] MEDS ORDERED: ZESTRIL TAB 20 MG ONE (08:51)
[2023-09-08] MEDS ORDERED: GLUCOPHAGE ONE (08:51)
[2023-09-08] MEDS ORDERED: CORTEF PO SCH (09:00)
[2023-09-08] MEDS ORDERED: PATIENT'S HOME MEDICATION (Lisinopril-Hydrochlorothiazide 20-12.5 mg tablet) PO SCH (09:00)
[2023-09-08] MEDS: ASPIRIN EC 81 MG PO SCH (10:03)
[2023-09-08] MEDS: ZESTRIL TAB 20 MG PO SCH (10:03)
[2023-09-08] MEDS: GLUCOPHAGE PO SCH (10:03)
[2023-09-08] MEDS: COLACE CAP 100 MG PO SCH ×2 (10:04→20:15)
[2023-09-08] MEDS: COREG TAB 3.125 MG PO SCH ×2 (10:04→20:15)
[2023-09-08] MEDS: HYDROCHLOROTHIAZIDE 12.5 MG CAP PO SCH (10:05)
[2023-09-08] MEDS: PROTONIX INJ 40 MG VIAL IVP SCH (10:05)
[2023-09-08] MEDS: ELIQUIS PO SCH ×2 (10:05→20:15)
[2023-09-08] MEDS: LINZESS PO SCH (10:05)
[2023-09-08] MEDS: NS 1,000 ML IV 1,000 ML IV SCH ×3 (11:22→22:21)
[2023-09-08] MEDS: CORTEF PO SCH (13:09)
[2023-09-08] MEDS ORDERED: CORTEF ONE (13:09)
[2023-09-08] MEDS: LIPITOR TAB 10 MG PO SCH (20:15)
[2023-09-08] MEDS ORDERED: REQUIP PO SCH (21:00)
[2023-09-08 23:43] VITALS: RESP 18
[2023-09-09] MEDS: NS 1,000 ML IV 1,000 ML IV SCH ×2 (02:05→05:33)
[2023-09-09 06:37] LABS: BASOPHILS % (AUTO) 0.5 % (0.2-1.0); EOSINOPHILS # (AUTO) 0.2 x10^3/uL (0.0-0.2); EOSINOPHILS % (AUTO) 2.1 % (0.9-2.9); HEMATOCRIT 38.7 % (42.0-54.0); HEMOGLOBIN 13.1 g/dL (13.5-18.0); LYMPHOCYTES # (AUTO) 2.7 X10^3/uL (1.3-2.9); MEAN CORPUSCULAR HEMOGLOBIN 30.2 pg (27.0-34.0); MEAN CORPUSCULAR VOLUME 88.8 fL (80.0-100.0); MEAN PLATELET VOLUME 6.9 fL (7.4-11.0); MONOCYTES # (AUTO) 0.6 x10^3/uL (0.3-0.8); MONOCYTES % (AUTO) 7.3 % (0.0-13.0); NEUTROPHILS # (AUTO) 4.6 x10^3/uL (2.2-4.8); NEUTROPHILS % (AUTO) 57.1 % (42.0-75.0); PLATELET COUNT 233 X10^3/uL (150.0-450.0); RED BLOOD COUNT 4.36 X10^6/uL (4.7-6.0); RED CELL DISTRIBUTION WIDTH 14.3 % (11.6-16.5); WHITE BLOOD COUNT 8.1 X10^3/uL (3.6-10.0)
[2023-09-09 06:54] LABS: ALANINE AMINOTRANSFERASE 38 Units/L (12-78); ALBUMIN 2.5 g/dL (3.4-5.0); ALKALINE PHOSPHATASE 61 Units/L (46-116); ASPARTATE AMINO TRANSFERASE 12 Units/L (15-37); BLOOD UREA NITROGEN 13 mg/dL (7-18); CARBON DIOXIDE 27.7 mmol/L (21-32); CHLORIDE 105 mmol/L (98-107); COR CA(FOR HYPOALB) 9.2 mg/dL (8.5-10.1); CREATININE 1.11 mg/dL (0.70-1.30); GLUCOSE 84 mg/dL (65-99); POTASSIUM 4.2 mmol/L (3.5-5.1); SODIUM 139 mmol/L (136-145); TOTAL PROTEIN 5.4 g/dL (6.4-8.2); eGFR NON BLACK RACES > 60 (>60)
[2023-09-09] MEDS ORDERED: GLUCOPHAGE ONE (09:08)
[2023-09-09] MEDS ORDERED: ZESTRIL TAB 20 MG ONE (09:08)
[2023-09-09] MEDS: ASPIRIN EC 81 MG PO SCH (09:44)
[2023-09-09] MEDS: PROTONIX INJ 40 MG VIAL IVP SCH (09:44)
[2023-09-09] MEDS: GLUCOPHAGE PO SCH (09:44)
[2023-09-09] MEDS: ZESTRIL TAB 20 MG PO SCH (09:44)
[2023-09-09] MEDS: ELIQUIS PO SCH (09:45)
[2023-09-09] MEDS: LINZESS PO SCH (09:45)
[2023-09-09] MEDS: COLACE CAP 100 MG PO SCH (09:45)
[2023-09-09] MEDS: COREG TAB 3.125 MG PO SCH (09:45)
[2023-09-09] MEDS: HYDROCHLOROTHIAZIDE 12.5 MG CAP PO SCH (09:45)
[2023-09-09 10:55] VITALS: O2SAT 98
[2023-09-09] MEDS: CORTEF PO SCH (10:58)
[2023-09-09] MEDS ORDERED: CORTEF ONE (10:59)
[2023-09-09 13:12] VITALS: BP 138/70; PULSE 75; TEMP 98
== END 2023-09-09 13:00 | disposition home or self-care (01) ==
LOC: ER 13:39 → MED/SURG 13:39
PROVIDERS: ADMIT Family Medicine; ATTEND Obstetrics & Gynecology Obstetrics
DX: R06.02 Shortness of breath; R42 Dizziness and giddiness; R53.83 Other fatigue; R06.09 Other forms of dyspnea; I10 Essential (primary) hypertension; E87.1 Hypo-osmolality and hyponatremia; E27.49 Other adrenocortical insufficiency; E78.5 Hyperlipidemia, unspecified

== ENCOUNTER 2023-10-10 10:37 | Observation (INO) ==
--- NOTE | 2023-10-10 10:46 | DR.GENAD ---
HPI Time Seen Time Seen by Provider: 10/10/23 10:45 HPI Comment HPI Comment: sent over from cariologist office while being evaluated had syncopal episode with drop in bp and weakness has been for several weeks lethargic poor po intake recent increase in beta blockers no c/o chest pain no abd c/o Nurses notes reviewed Nurses Notes Review: Yes Mode of Arrival Mode of Arrival: Stretcher Duration Duration: Intermittent PMH PMH Past Medical History: Asthma, Diabetes, Dyslipidemia, GERD and Hypertension Past Surgical History: Yes Surgical History: No History Family History Family Medical History: Diabetes Mellitus, Cancer, [place] and Hypertension Social History Do you use any recreational Drugs:: No Travel Risk Coronavirus risk:travel/contact w/high risk person: No Infectious screening In the last 2 months have you had wt loss of >10#?: YES Have you had fever, night sweats or hemotysis?: No ROS Review of Systems Constitutional: Irritable and Loss of Appetite Cardiovascular: Syncope All Other Systems: Reviewed and Negative PE Vital Signs Vitals: Vital Signs Temperature 97.8 F Pulse Rate 83 Respiratory Rate 20 Blood Pressure 159/70 Blood Pressure 140/100 O2 Sat by Pulse Oximetry 97 General General Appearance: Lethargic ENT ENT Exam: Normal Exam Respiratory Respiratory Exam: Normal Lung Sounds Bilat Abdominal Exam Abdominal Exam: Normal Inspection, Normal Bowel Sounds and Soft; negative Tenderness or Guarding Neurologic Neurological Exam: Alert, Oriented X3 and CN II-XII Intact MDM Differential Diagnosis Differential Diagnosis: dehydration pe mi flu covid COURSE Treatment Treatment: ns and zofran given Opioid Opioid Risk Tool Age (Lucio box if 16-45): No History of Preadolescent Sexual Abuse: No Total: 0 Total Score Risk Category: Low Risk Copyright: [place] WILLIS predicting aberrant behaviors Discharge Plan Diagnosis Discharge Problem: Generalized weakness, Tachycardia Discharge Plan Patient Disposition: HOME, SELF-CARE Condition: Stable Prescriptions: No Action aspirin 81 mg tablet,delayed release (DR/EC) 81 mg PO QDAY hydrocortisone 10 mg tablet 10 mg PO BID ropinirole 1 mg tablet 1 mg PO QPM sucralfate 1 gram tablet 1 g PO QID lorazepam 1 mg tablet 1 mg PO TID metformin 500 mg tablet 500 mg PO QDAY cetirizine 10 mg tablet 10 mg PO QDAY lisinopril-hydrochlorothiazide 20-12.5 mg tablet 1 tab PO QDAY lovastatin 40 mg tablet 40 mg PO QPM docusate sodium [Stool Softener] 100 mg capsule 100 mg PO BID omeprazole 20 mg capsule,delayed release(DR/EC) 20 mg PO QDAY Linzess 145 mcg capsule 145 mcg PO QDAY ondansetron 4 mg tablet,disintegrating 4 mg PO Q6H PRN (Reason: nausea/vomiting) escitalopram oxalate 10 mg Tablet 10 mg PO DAILY carvedilol 12.5 mg tablet 6.25 mg PO BID lorazepam 0.5 mg tablet 0.5 mg PO TID MDD 3 PRN (Reason: anxiety) Qty: 14 0RF Health Concerns: Post Hospitalization: new medications and changes needed to prevent readmission or further decline. Pt educated and given instructions on all concerns. Plan of Treatment: Continue with present treatment and follow up plan. Pt is to keep follow up appointment as instructed and take medications as ordered. Follow ups/Referrals Follow ups/Referrals: RHYS PAREDES [Primary Care Provider] - 3 days Instructions Stand Alone Forms: Post Hospital Follow Up Care
[2023-10-10] MEDS ORDERED: ZOFRAN INJ 4 MG VIAL ONE (10:56)
[2023-10-10] MEDS: ZOFRAN INJ 4 MG VIAL IVP ONE (11:01)
[2023-10-10] MEDS ORDERED: NS 1,000 ML IV 1,000 ML ONE (11:02)
[2023-10-10] MEDS: NS 1,000 ML IV 1,000 ML IV ONE (11:04)
[2023-10-10 11:06] LABS: BASOPHILS # (AUTO) 0.1 X10^3/uL (0.0-0.1); BASOPHILS % (AUTO) 0.9 % (0.2-1.0); EOSINOPHILS # (AUTO) 0.1 x10^3/uL (0.0-0.2); EOSINOPHILS % (AUTO) 1.5 % (0.9-2.9); HEMATOCRIT 45.3 % (42.0-54.0); HEMOGLOBIN 15.8 g/dL (13.5-18.0); LYMPHOCYTES # (AUTO) 2.2 X10^3/uL (1.3-2.9); LYMPHOCYTES % (AUTO) 21.6 % (21.0-51.0); MEAN CORPUSCULAR HEMOGLOBIN 30.6 pg (27.0-34.0); MEAN CORPUSCULAR HGB CONC 34.8 g/dL (33.0-35.0); MEAN CORPUSCULAR VOLUME 87.9 fL (80.0-100.0); MEAN PLATELET VOLUME 7.1 fL (7.4-11.0); MONOCYTES # (AUTO) 0.7 x10^3/uL (0.3-0.8); MONOCYTES % (AUTO) 7.1 % (0.0-13.0); NEUTROPHILS # (AUTO) 7.1 x10^3/uL (2.2-4.8); NEUTROPHILS % (AUTO) 68.9 % (42.0-75.0); PLATELET COUNT 283 X10^3/uL (150.0-450.0); RED BLOOD COUNT 5.16 X10^6/uL (4.7-6.0); RED CELL DISTRIBUTION WIDTH 14.2 % (11.6-16.5); WHITE BLOOD COUNT 10.3 X10^3/uL (3.6-10.0)
--- NOTE | 2023-10-10 11:19 | EKG ---
Test Reason : weak Blood Pressure : */* mmHG Vent. Rate : 85 BPM Atrial Rate : 85 BPM P-R Int : 136 ms QRS Dur : 86 ms QT Int : 380 ms P-R-T Axes : 27 40 36 degrees QTc Int : 452 ms Normal sinus rhythm Normal ECG When compared with ECG of 06-OCT-2023 20:15, No significant change was found Confirmed by Oscar Foster MD ([id number]) on 10/10/2023 2:34:46 PM Referred By: Confirmed By: Oscar Foster MD
[2023-10-10 11:20] LABS: ALANINE AMINOTRANSFERASE 36 Units/L (12-78); ALBUMIN 3.6 g/dL (3.4-5.0); ALKALINE PHOSPHATASE 54 Units/L (46-116); ASPARTATE AMINO TRANSFERASE 13 Units/L (15-37); BLOOD UREA NITROGEN 11 mg/dL (7-18); CALCIUM 9.3 mg/dL (8.5-10.1); CARBON DIOXIDE 28.3 mmol/L (21-32); CHLORIDE 99 mmol/L (98-107); COR NA(FOR HYPERGLY) 140 mmol/L (136-145); CREATININE 1.26 mg/dL (0.70-1.30); GLUCOSE 135 mg/dL (65-99); POTASSIUM 3.6 mmol/L (3.5-5.1); SODIUM 139 mmol/L (136-145); TOTAL PROTEIN 7.1 g/dL (6.4-8.2); eGFR NON BLACK RACES > 60 (>60)
--- NOTE | 2023-10-10 11:36 | CT ---
EXAM: ABDOMEN/PELVIS W/O CON HISTORY: weakness, blood pressure dropped; COMPARISON: CT abdomen and pelvis 08/24/2023 TECHNIQUE: Multiple CT axial images of the abdomen and pelvis were obtained without IV contrast. Coronal and sag ittal images were reconstructed. Dose reduction techniques included Automated Exposure Control (AEC) and adjustment of mA and kV. FINDINGS: The lung bases are clear. Heart size is normal. Atherosclerotic calcification is present in the anthony nary arteries. The liver is normal in size and configuration. The gallbladder has no edema around it. The spleen i s normal in size and shape. The adrenal glands are normal. The pancreas is normal. No abnormal calcifications are present in the kidneys, ureters, or urinary bladder. The kidneys have normal size and shape. There is no hydronephrosis or significant perirenal edema. The bladder is no rmally distended. It has no wall thickening or perivesical edema. The bowel is not dilated. There is no wall thickening in the bowel or edema around the bowel. The ap pendix is normal in size with no inflammation around it. No evidence of appendicitis. There are a fe w diverticula in the sigmoid colon. But there is no wall thickening or pericolonic edema to suggest acute diverticulitis. Degenerative changes are present in the spine. No retroperitoneal hemorrhage. IMPRESSION: 1. No acute findings 2. Few colonic diverticula THIS IS AN ELECTRONICALLY VERIFIED FINAL REPORT 10/10/2023 11:33 AM - Electronically signed by Cliff Daugherty MD
[2023-10-10 11:51] LABS: ABG HCO3 27.8 mmol/L (22-26)
[2023-10-10 11:52] LABS: ABG ALLEN TEST POS
[2023-10-10 12:42] LABS: T4 (THYROXINE) 9.2 ug/dL (4.7-13.3)
[2023-10-10] MEDS: LEXAPRO PO SCH (13:00)
--- NOTE | 2023-10-10 14:56 | RAD ---
EXAM:CHEST, 1 VIEWHISTORY:weakness;COMPARISON:Numerous priorsFINDINGS:The trachea is midline. The cardiac silhouette is unremarkable. The lungs are clear without focal infiltrate or effusion. The bony thorax is unremarkable.Overall, the examination is stable compared to the prior study.IMPRESSION:No acute cardiopulmonary disease or changes.THIS IS AN ELECTRONICALLY VERIFIED FINAL REPORT10/10/2023 2:48 PM - Electronically signed by Reid Victor
[2023-10-10] MEDS: NS 1,000 ML IV 1,000 ML IV SCH (15:09)
[2023-10-10 15:27] VITALS: BMI 28.0
[2023-10-10] MEDS ORDERED: CONSULT PHARMACY - POTASSIUM & MAGNESIUM XX SCH ×2 (16:00→16:06)
[2023-10-10] MEDS ORDERED: LEXAPRO PO SCH (16:06)
[2023-10-10] MEDS ORDERED: NovoLIN R (or HumuLIN R) SUBCUT PRN (16:06)
--- NOTE | 2023-10-10 16:23 | EKG ---
Test Reason : anxiety Blood Pressure : */* mmHG Vent. Rate : 73 BPM Atrial Rate : 73 BPM P-R Int : 138 ms QRS Dur : 102 ms QT Int : 398 ms P-R-T Axes : 18 34 34 degrees QTc Int : 438 ms Normal sinus rhythm Normal ECG When compared with ECG of 10-OCT-2023 11:16, No significant change was found Confirmed by Oscar Foster MD ([id number]) on 10/11/2023 7:34:54 AM Referred By: Confirmed By: Oscar Foster MD
[2023-10-10] MEDS: ATIVAN TAB 0.5 MG PO PRN (17:32)
[2023-10-10] MEDS: TYLENOL 325 MG TAB PO PRN (19:08)
[2023-10-10] MEDS: LEXAPRO PO ONE (19:18)
[2023-10-10] MEDS: LEXAPRO ONE (19:25)
[2023-10-10] MEDS ORDERED: CORTEF ONE (20:20)
[2023-10-10] MEDS: REQUIP PO SCH (20:27)
[2023-10-10] MEDS: MAG-OX TAB PO SCH (20:28)
[2023-10-10] MEDS: K-DUR TAB 20 MEQ PO SCH (20:28)
[2023-10-10] MEDS: COLACE CAP 100 MG PO SCH (20:28)
[2023-10-10] MEDS: CORTEF PO SCH (20:32)
[2023-10-10] MEDS: SNACK - Diabetic Appropriate PO SCH (20:33)
[2023-10-10] MEDS ORDERED: HYDROCORTISONE 10 MG PO SCH (21:00)
[2023-10-11 05:30] LABS: BASOPHILS # (AUTO) 0.1 X10^3/uL (0.0-0.1); BASOPHILS % (AUTO) 0.6 % (0.2-1.0); EOSINOPHILS # (AUTO) 0.1 x10^3/uL (0.0-0.2); EOSINOPHILS % (AUTO) 1.4 % (0.9-2.9); HEMATOCRIT 41.8 % (42.0-54.0); HEMOGLOBIN 14.4 g/dL (13.5-18.0); LYMPHOCYTES # (AUTO) 1.8 X10^3/uL (1.3-2.9); LYMPHOCYTES % (AUTO) 20.5 % (21.0-51.0); MEAN CORPUSCULAR HEMOGLOBIN 30.4 pg (27.0-34.0); MEAN CORPUSCULAR HGB CONC 34.6 g/dL (33.0-35.0); MEAN CORPUSCULAR VOLUME 87.8 fL (80.0-100.0); MEAN PLATELET VOLUME 7.4 fL (7.4-11.0); MONOCYTES # (AUTO) 0.8 x10^3/uL (0.3-0.8); MONOCYTES % (AUTO) 9.5 % (0.0-13.0); NEUTROPHILS # (AUTO) 5.9 x10^3/uL (2.2-4.8); PLATELET COUNT 251 X10^3/uL (150.0-450.0); RED BLOOD COUNT 4.76 X10^6/uL (4.7-6.0); RED CELL DISTRIBUTION WIDTH 14.2 % (11.6-16.5); WHITE BLOOD COUNT 8.7 X10^3/uL (3.6-10.0)
[2023-10-11 05:53] LABS: ALANINE AMINOTRANSFERASE 32 Units/L (12-78); ALBUMIN 3.1 g/dL (3.4-5.0); ALKALINE PHOSPHATASE 44 Units/L (46-116); ASPARTATE AMINO TRANSFERASE 13 Units/L (15-37); BLOOD UREA NITROGEN 8 mg/dL (7-18); CALCIUM 8.7 mg/dL (8.5-10.1); CARBON DIOXIDE 26.3 mmol/L (21-32); CHLORIDE 104 mmol/L (98-107); COR CA(FOR HYPOALB) 9.4 mg/dL (8.5-10.1); CREATININE 1.09 mg/dL (0.70-1.30); GLUCOSE 93 mg/dL (65-99); POTASSIUM 3.8 mmol/L (3.5-5.1); SODIUM 139 mmol/L (136-145); TOTAL PROTEIN 6.4 g/dL (6.4-8.2); eGFR NON BLACK RACES > 60 (>60)
--- NOTE | 2023-10-11 06:13 | RAD ---
EXAM:CHEST, 1 VIEWHISTORY:SOB; DM, ASTHMA, HTN, GERDCOMPARISON:10/10/2023FINDINGS:The cardiomediastinal silhouette is stable.No acute airspace disease. No pneumothorax or effusion.No acute osseous abnormality.IMPRESSION:No acute cardiopulmonary disease.THIS IS AN ELECTRONICALLY VERIFIED FINAL REPORT10/11/2023 6:10 AM - Electronically signed by Navdeep Garza MD
[2023-10-11] MEDS ORDERED: CONSULT PHARMACY - POTASSIUM & MAGNESIUM XX SCH (07:00)
[2023-10-11] MEDS: ZOFRAN TAB 4 MG SL PRN (07:59)
[2023-10-11] MEDS ORDERED: LEXAPRO ONE (08:02)
[2023-10-11] MEDS ORDERED: CORTEF ONE (08:03)
[2023-10-11] MEDS: LEXAPRO PO SCH (08:11)
[2023-10-11] MEDS: K-DUR TAB 20 MEQ PO SCH (08:11)
[2023-10-11] MEDS: ASPIRIN EC 81 MG PO SCH (08:11)
[2023-10-11] MEDS ORDERED: LEXAPRO PO SCH (09:00)
[2023-10-11] MEDS: LINZESS PO ONE (10:17)
[2023-10-11] MEDS: PREDNISONE TAB 5 MG PO SCH (11:14)
[2023-10-11] MEDS: KLONOPIN TAB 1 MG PO ONE (12:34)
--- NOTE | 2023-10-11 14:17 | DR.CONSULT ---
CONSULT Consultation for Day of: Date: 10/11/23 Chief Complaint Chief Complaint: near syncopal/weak Allergies Allergies Allergy/AdvReac Type Severity Reaction Status Date / Time iodine Allergy Verified 10/10/23 10:12 Penicillins Allergy Verified 10/10/23 10:12 shellfish derived Allergy Verified 10/10/23 10:12 shrimp Allergy Verified 10/10/23 10:12 History of Present Illness History of Present Illness: seen at my office yesterday and sent to ER - markedly orthostatic-recent echo: normal- recent holter due to palp: minimal ectopy ave hr 80 but 6 sec pause while taking carvedilol 12.5 only qd- also on trav/diuretic- stated lost 40 lbs since virus christms and covid in aug-poor po- stated he felt like he was dying- given 2 liters of fluid- feels so much better- some diarhea after lizness- still not good po- slept better and feels better- all labs/ekg etc for most part normal Past Medical History Past Medical History: Anxiety, Asthma, Diabetes, Dyslipidemia, GERD and Hypertension Past Surgical History Surgical History: No History Family History Family Medical History: Diabetes Mellitus, [place], Heart Failure and Hypertension Social History Does patient currently use any type of tobacco product: No Have you used tobacco products in the last 12 months: No Type of Tobacco Use: None Does any household member use tobacco: No Alcohol Use: None Drug Use: None Medications Home Medications: iodine Allergy (Verified 10/10/23 10:12) Penicillins Allergy (Verified 10/10/23 10:12) shellfish derived Allergy (Verified 10/10/23 10:12) shrimp Allergy (Verified 10/10/23 10:12) CONTINUE taking the following medications aspirin 81 mg tablet,delayed release 81 mg PO DAILY 10/10/23 [History] cetirizine 10 mg tablet 10 mg PO QDAY PRN 10/10/23 [History] lovastatin 20 mg tablet 20 mg PO QPM 10/10/23 [History] omeprazole 20 mg capsule,delayed release 20 mg PO QDAY 10/10/23 [History] ondansetron 4 mg disintegrating tablet 4 mg PO Q6H PRN 10/10/23 [History] Physical Exam Vital Signs: Vital Signs Temperature 97.9 F Temperature 97.9 F Pulse Rate [Left Radial] 92 Pulse Rate [Left Radial] 78 Respiratory Rate 20 Respiratory Rate 18 Blood Pressure [Left Arm] 143/86 Blood Pressure [Left Arm] 120/77 O2 Sat by Pulse Oximetry 94 O2 Sat by Pulse Oximetry 99 bp 130 to 100 upon standing- able to hold himself up today( marked improvement from yesterday) clear lungs rrr no edema tele: no pauses bp 130-140 on no meds since admission Plan (1) Orthostasis: Status: Acute Plan: cont ivf for another day- push po- if bp goes up- add trav w/o diuretic!! (2) Post covid-19 condition, unspecified: Status: Acute (3) Anxiety: Status: Acute Plan: needs a stress test someday when not orthostatic (4) Sick sinus syndrome: Status: Acute Narrative Support Text: 6 sec pause on coreg 12.5 qd Plan: lets avoid for now but if tachy/treatment needed: tiny 3.125 coreg only
[2023-10-11] MEDS: KLONOPIN TAB 0.5 MG PO PRN (20:34)
[2023-10-11] MEDS: NS 100 ML IV 100 ML ONE (20:40)
[2023-10-11 23:34] VITALS: RESP 20
--- NOTE | 2023-10-12 04:52 | EKG ---
Test Reason : Chest Pain Blood Pressure : */* mmHG Vent. Rate : 79 BPM Atrial Rate : 79 BPM P-R Int : 148 ms QRS Dur : 86 ms QT Int : 390 ms P-R-T Axes : 24 25 37 degrees QTc Int : 447 ms Normal sinus rhythm Normal ECG When compared with ECG of 10-OCT-2023 16:10, No significant change was found Confirmed by Oscar Foster MD ([id number]) on 10/12/2023 7:30:17 AM Referred By: Confirmed By: Oscar Foster MD
[2023-10-12 05:06] LABS: BASOPHILS # (AUTO) 0.1 X10^3/uL (0.0-0.1); BASOPHILS % (AUTO) 0.7 % (0.2-1.0); EOSINOPHILS # (AUTO) 0.1 x10^3/uL (0.0-0.2); EOSINOPHILS % (AUTO) 1.2 % (0.9-2.9); HEMATOCRIT 38.3 % (42.0-54.0); HEMOGLOBIN 13.6 g/dL (13.5-18.0); LYMPHOCYTES # (AUTO) 2.2 X10^3/uL (1.3-2.9); LYMPHOCYTES % (AUTO) 26.9 % (21.0-51.0); MEAN CORPUSCULAR HGB CONC 35.4 g/dL (33.0-35.0); MEAN CORPUSCULAR VOLUME 87.5 fL (80.0-100.0); MEAN PLATELET VOLUME 6.9 fL (7.4-11.0); MONOCYTES # (AUTO) 0.5 x10^3/uL (0.3-0.8); MONOCYTES % (AUTO) 6.2 % (0.0-13.0); NEUTROPHILS # (AUTO) 5.3 x10^3/uL (2.2-4.8); PLATELET COUNT 214 X10^3/uL (150.0-450.0); RED BLOOD COUNT 4.38 X10^6/uL (4.7-6.0); RED CELL DISTRIBUTION WIDTH 14.2 % (11.6-16.5); WHITE BLOOD COUNT 8.1 X10^3/uL (3.6-10.0)
[2023-10-12 05:11] LABS: ALANINE AMINOTRANSFERASE 29 Units/L (12-78); ALBUMIN 2.9 g/dL (3.4-5.0); ALKALINE PHOSPHATASE 46 Units/L (46-116); ASPARTATE AMINO TRANSFERASE 11 Units/L (15-37); BLOOD UREA NITROGEN 13 mg/dL (7-18); CALCIUM 8.6 mg/dL (8.5-10.1); CARBON DIOXIDE 29.2 mmol/L (21-32); CHLORIDE 107 mmol/L (98-107); COR CA(FOR HYPOALB) 9.5 mg/dL (8.5-10.1); COR NA(FOR HYPERGLY) 142 mmol/L (136-145); CREATININE 1.16 mg/dL (0.70-1.30); GLUCOSE 130 mg/dL (65-99); POTASSIUM 3.4 mmol/L (3.5-5.1); SODIUM 141 mmol/L (136-145); TOTAL PROTEIN 5.9 g/dL (6.4-8.2); eGFR NON BLACK RACES > 60 (>60)
[2023-10-12] MEDS ORDERED: LEXAPRO ONE (07:34)
[2023-10-12] MEDS ORDERED: PREDNISONE TAB 5 MG PO SCH (09:00)
[2023-10-12] MEDS: LOVENOX INJ 40 MG SYR SC SCH (10:24)
--- NOTE | 2023-10-12 10:35 | CT ---
EXAM:SINUS W/O CONHISTORY:TEETH HURTING, HEADACHE;COMPARISON:NoneTECHNIQUE:Multip le CT axial images of the sinuseswere obtained without IV contrast. Coronal and sagittal images were reconstructed. Dose reduction techniques included Automated Exposure Control (AEC) and adjustment of mA and kV.FINDINGS:Many of the teeth have been extracted. Many of the remaining teeth have erosions and caries. Right mandibular wisdom tooth is impacted. At least 3 maxillary teeth have erosions around the roots suggesting periapical abscesses. The largest is on the right side, tooth number 3. The next largest is on the left side tooth number 12. And the 3rd is on the right side tooth number 5.There is no evidence for overlying subperiosteal abscess or facial cellulitis.No fluid in the sinuses to suggest acute sinusitis. Minimal mucosal thickening seen in the right maxillary sinus could be chronic sinusitis. This may also be reactive from the adjacent periapical tooth abscess. There is also minimal mucosal thickening in a posterior left ethmoid air cell there is no mastoid effusion.Nasal cavity is patent with no mass or polyp. Right delta bullosa is a normal variant. Orbital lemus are intact. The globes and orbital contents appear normal.IMPRESSION:1. Multiple maxillary periapical tooth abscesses2. Chronic sinusitis3. No evidence for facial cellulitisTHIS IS AN ELECTRONICALLY VERIFIED FINAL REPORT10/12/2023 10:32 AM - Electronically signed by Cliff Daugherty MD
--- NOTE | 2023-10-12 13:57 | NOTE.SOAP ---
Soap Note Note for Day of Date of Exam: 10/12/23 Subjective Data Subjective Data: very sob/thinks he will pass out if does stress test- still poor po Objective Data Objective Data: vitals all good- tele: no pauses lungs clear heart regular bp 130/80: not orthostatic urine drug screen negative Assessment Assessment: no longer orthostatic- possible post covid pots( treatment is BB ( 12.5 coreg caused 6 sec pause so no more than 3.125 bid)- need po fluids daily- no diuretics- would love to do ischemic eval but cant walk on treadmill safely- will consider DSE- pt in process of being transferred to [place]
[2023-10-12] MEDS: XOPENEX 1.25 MG/3 ML NEBULE NEB ONE (14:17)
[2023-10-12 16:04] VITALS: O2SAT 98
[2023-10-12] MEDS: KLONOPIN TAB 0.5 MG PO PRN (20:13)
[2023-10-12 20:47] VITALS: BP 155/84; PULSE 88; TEMP 97.9
== END 2023-10-12 20:30 | disposition short-term general hospital (02) ==
LOC: MED/SURG 10:37 → ER 10:37 → MED/SURG 14:44
PROVIDERS: ADMIT Obstetrics & Gynecology Obstetrics; ATTEND Obstetrics & Gynecology Obstetrics
DX: K04.6 Periapical abscess with sinus; R53.1 Weakness; I10 Essential (primary) hypertension; R00.0 Tachycardia, unspecified; K21.9 Gastro-esophageal reflux disease without esophagitis; F41.8 Other specified anxiety disorders; E11.65 Type 2 diabetes mellitus with hyperglycemia; R55 Syncope and collapse; U09.9 Post COVID-19 condition, unspecified; R07.89 Other chest pain; R06.02 Shortness of breath; I95.1 Orthostatic hypotension; I49.5 Sick sinus syndrome